=== PATIENT | female | born 1995 | race American Indian/Alaskan Native ===

== ENCOUNTER 2019-03-14 11:27 | Inpatient (IN) | payer MEDICAID ==
[2019-03-14 14:56] LABS: Basophils % (Auto) 0.5 % (0.0-1.8); Eosinophils % (Auto) 0.5 % (0.0-4.3); Hemoglobin 11.9 gm/dl (10.1-14.3); Lymphocytes # (Auto) 1.5 K/mm3 (1.2-5.4); Lymphocytes % (Auto) 14.7 % (13.4-35.0); Mean Corpuscular HGB Conc 34 % (30-34); Mean Corpuscular Volume 93 fl (79-97); Monocytes % (Auto) 9.9 % (0.0-7.3); Platelet Count 297 K/mm3 (140-440); Red Blood Count 3.76 M/mm3 (3.65-5.03); Red Cell Distribution Width 14.4 % (13.2-15.2)
--- NOTE | 2019-03-14 15:12 | Ultrasound Report ---
ULTRASOUND OB LIMITED HISTORY: Premature rupture of membranes, leaking fluid. TECHNIQUE: Transabdominal ultrasound with color Doppler imaging. FINDINGS: Single intrauterine is identified in cephalic position. heart rate measures 133 bpm. Amniotic fluid index measures 1.9 cm. IMPRESSION: Oligohydramnios. Signer Name: Monty Tan Jr, MD Signed: 03/14/2019 3:08 PM Workstation Name: [id number]
[2019-03-14] MEDS: LACTATED RINGERS 1,000 ML IV SCH ×3 (15:17→22:17)
[2019-03-14] MEDS ORDERED: MINERAL OIL PO PRN (15:29)
[2019-03-14] MEDS ORDERED: XYLOCAINE 2% INFILTRATI ONE (15:29)
[2019-03-14] MEDS ORDERED: BRETHINE SUB-Q PRN (15:29)
[2019-03-14] MEDS ORDERED: ZOFRAN IV PRN ×2 (15:35→23:23)
[2019-03-14] MEDS ORDERED: NUBAIN IV PRN (15:35)
[2019-03-14] MEDS ORDERED: PITOCin/NS 20 UNIT/1000ML DRIP 20 UNITS/1,000 ML BAG IV SCH ×2 (16:00→23:45)
[2019-03-14] MEDS ORDERED: PITOCin/NS 30 UNIT/500ML 30 UNITS/500 ML BAG IV SCH (16:00)
[2019-03-14] MEDS ORDERED: AMPICILLIN/NS 2 GM/100 ML 2 GM/100 ML BAG IV ONE (16:35)
[2019-03-14] MEDS ORDERED: LACTATED RINGERS 1,000 ML IV SCH ×2 (16:55→23:45)
--- NOTE | 2019-03-14 18:03 | History and Physical Report ---
History of Present Illness Date of examination: 03/14/19 (pt admitted with ROM GEOVANY 1) Date of admission: 03/14/19 15:26 Chief complaint: called office reporting ctx and mucous plug passing History of present illness: EDC Confirmation: 03/15/2019 Gestational Age: 13 4/7 weeks Past History : 1 Term Births: 0 Premature Births: 0 Living Children: 0 Para: 0 Mult. Births: 0 Prev : 0 Prev. attempt? 0 Aborta: 0 Elect. Ab: 0 Spont. 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 of genital herpes: yes Partner hx. of genital herpes: no Rash, Viral, or Febrile illness since last LMP? yes Varicella/Chicken Pox Status: Unknown TB Risk: no Genetic History Congenital Heart Defect: Mom: no Dad: no Elisabeth Disease: Mom: no Dad: no Thalassemia Mom: no Dad: no Neural Tube Defect Mom: no Dad: no Down's Syndrome Mom: no Dad: no Tommy-Sachs Mom: no Dad: no Sickle Cell Disease/Trait Mom: no Dad: no Hemophilia Mom: no Dad: no Muscular Dystrophy Mom: no Dad: no Cystic Fibrosis Mom: no Dad: no Bubba Chorea Mom: no Dad: no Mental Retardation Mom: no Dad: no Fragile X Mom: no Dad: no Other Genetic/Chromosomal Disorder Mom: no Dad: no Child w/other defect Mom: no Dad: no Enviromental Exposures Enviromental Exposures Reviewed Xray Exposure: no Medication, drug, or alcohol use since LMP: no Chemical/Other Exposure: no Exposure to Cat Liter: no Hx of Parvovirus (Fifth Disease): no Occupational Exposure to Children: none Active Medications (reviewed today): VALACYCLOVIR () PNV () Current Allergies (reviewed today): No known allergies Past History - Obstetrical History Expected Date of Delivery: 03/15/19 Actual Gestation: 39 Week(s) 6 Day(s) : 1 Para: 0 Hx # Term Pregnancies: 0 Number of Pregnancies: 0 Spontaneous Abortions: 0 Induced : 0 Number of Living Children: 0 Medications and Allergies Allergies Allergy/AdvReac Type Severity Reaction Status Date / Time No Known Allergies Allergy Unverified 07/08/18 17:55 Home Medications Medication Instructions Recorded Confirmed Last Taken Type Acetaminophen 500 mg PO Q8H PRN #20 tablet 07/08/18 03/14/19 Unknown Rx 21/Iron Fu/Folic Acid 1 each PO DAILY #30 tablet 07/08/18 03/14/19 1 Day Ago Rx [ Complete Caplet] ~03/13/19 1 Active Meds: Active Medications Ephedrine Sulfate (Ephedrine Sulfate) 10 mg IV Q2M PRN PRN Reason: Hypotension Lactated Ringer's (Lactated Ringers) 1,000 mls @ 125 mls/hr IV DIRECT AURELIA Last Admin: 03/14/19 15:17 Dose: 125 mls/hr Documented by: Oxytocin/Sodium Chloride (Pitocin/Ns 20 Unit/1000ml Drip) 20 units in 1,000 mls @ 125 mls/hr IV DIRECT AURELIA Oxytocin/Sodium Chloride (Pitocin/Ns 30 Unit/500ml) 30 units in 500 mls @ 4 mls/hr IV Q30MIN AURELIA; Protocol Lactated Ringer's (Lactated Ringers) 1,000 mls @ 125 mls/hr IV DIRECT AURELIA Ampicillin Sodium (Ampicillin/Ns 1 Gm/50 Ml) 1 gm in 50 mls @ 100 mls/hr IV Q4H AURELIA; Protocol Mineral Oil (Mineral Oil) 30 ml PO QHS PRN PRN Reason: Constipation Nalbuphine HCl (Nubain) 10 mg IV Q2H PRN PRN Reason: Pain, Moderate (4-6) Ondansetron HCl (Zofran) 4 mg IV Q8H PRN PRN Reason: Nausea And Vomiting Terbutaline Sulfate (Brethine) 0.25 mg SUB-Q ONCE PRN PRN Reason: Hyperstimulation/Hypertonicity - Vital Signs Vital signs: Vital Signs Pulse BP 88 128/71 03/14/19 11:49 03/14/19 11:49 Temp Pulse Resp BP Pulse Ox 98.7 F 78 18 124/76 99 03/14/19 11:50 03/14/19 15:41 03/14/19 11:50 03/14/19 15:41 03/14/19 11:50 - Physical Exam Breasts: Positive: deferred Cardiovascular: Regular rate, Normal S1, Normal S2 Lungs: Positive: Normal air movement Abdomen: Positive: normal appearance, soft, normal bowel sounds. Negative: d istention, tenderness Genitourinary (Female): Positive: normal perenium Vulva: both: normal Vagina: Positive: normal moisture. Negative: discharge Cervix: Negative: lesion, discharge Uterus: Positive: normal size, normal contour Adnexa: both: normal Anus/Rectum: Positive: normal perianal skin, heme negative. Negative: rectal mass, hemorrhoids Extremities: Positive: normal Deep Tendon Reflex Grade: Normal +2 - Obstetrical FHR: category 1 Uterine Contraction Monitor Mode: Internal Cervical Dilatation: 4 (ISE?IUPC placed) Cervical Effacement Percentage: 90 station: 0 Uterine Contraction Pattern: Regular Uterine Tone Measurement Phase: Resting Uterine Contraction Intensity: Moderate Results Result Diagrams: 03/14/19 14:40 Abnormal lab results 03/14/19 Range/Units 14:40 [place] % (Auto) 9.9 H (0.0-7.3) % [place] # 1.0 H (0.0-0.8) K/mm3 Seg Neutrophils % 74.4 H (40.0-70.0) % All other labs normal. GBS positive HBsAg Screen Negative Negative *1 RPR Non Reactive Non Reactive *2 Rubella Antibodies, IgG 4.41 index Immune >0.99 *3 Non-immune <0.90 Equivocal 0.90 - 0.99 Immune >0.99 ABO Grouping O *4 Rh Factor Positive *5 Please note: Prior records for this patient's ABO / Rh type are not available for additional verification. Antibody Screen Negative Negative *6 WBC 9.3 x10E3/uL 3.4-10.8 *7 RBC [L] 3.76 x10E6/uL 3.77-5.28 *8 Hemoglobin 12.2 g/dL 11.1-15.9 *9 Hematocrit 35.9 % 34.0-46.6 *10 MCV 96 fL 79-97 *11 MCH 32.4 pg 26.6-33.0 *12 MCHC 34.0 g/dL 31.5-35.7 *13 RDW 13.3 % 12.3-15.4 *14 Platelets 249 x10E3/uL 150-379 *15 Neutrophils 70 % Not Estab. *16 Lymphs 19 % Not Estab. *17 Monocytes 9 % Not Estab. *18 Eos 2 % Not Estab. *19 Basos 0 % Not Estab. *20 ! Immature Cells <No Reported Value> *21 Neutrophils (Absolute) 6.5 x10E3/uL 1.4-7.0 *22 Lymphs (Absolute) 1.7 x10E3/uL 0.7-3.1 *23 Monocytes(Absolute) 0.8 x10E3/uL 0.1-0.9 *24 Eos (Absolute) 0.2 x10E3/uL 0.0-0.4 *25 Baso (Absolute) 0.0 x10E3/uL 0.0-0.2 *26 ! Immature Granulocytes 0 % Not Estab. *27 ! Immature Grans (Abs) 0.0 x10E3/uL 0.0-0.1 *28 ! NRBC <No Reported Value> *29 Hematology Comments: <No Reported Value> *30 Tests: (2) Thrombotic Risk Acquired Com-I (105282) ! Dilute Prothrombin Time(dPT) 33.6 sec 0.0-55.0 *31 ! dPT Confirm Ratio 1.00 Ratio 0.00-1.40 *32 ! Prothrombin Antibodies, IgG 5 G units 0-20 *33 ! Anticardiolipin Ab,IgG,Qn <9 GPL U/mL 0-14 *34 Negative: <15 Indeterminate: 15 - 20 Low-Med Positive: >20 - 80 High Positive: >80 ! Anticardiolipin Ab,IgM,Qn <9 MPL U/mL 0-12 *35 Negative: <13 Indeterminate: 13 - 20 Low-Med Positive: >20 - 80 High Positive: >80 ! Anticardiolipin Ab,IgA,Qn <9 APL U/mL 0-11 *36 Negative: <12 Indeterminate: 12 - 20 Low-Med Positive: >20 - 80 High Positive: >80 ! Beta-2 Glycoprotein I Ab, IgG <9 GPI IgG units 0-20 *37 The reference interval reflects a 3SD or 99th percentile interval, which is thought to represent a potentially clinically significant result in accordance with the International Consensus Statement on the classification criteria for definitive antiphospholipid syndrome (APS). J Thromb Haem 2006;4:295-306. ! Beta-2 Glycoprotein I Ab, IgA <9 GPI IgA units 0-25 *38 The reference interval reflects a 3SD or 99th percentile interval, which is thought to represent a potentially clinically significant result in accordance with the International Consensus Statement on the classification criteria for definitive antiphospholipid syndrome (APS). J Thromb Haem 2006;4:295-306. ! Beta-2 Glycoprotein I Ab, IgM <9 GPI IgM units 0-32 *39 The reference interval reflects a 3SD or 99th percentile interval, which is thought to represent a potentially clinically significant result in accordance with the International Consensus Statement on the classification criteria for definitive antiphospholipid syndrome (APS). J Thromb Haem 2006;4:295-306. ! Antiphosphatidylserine IgM 8 MPS IgM 0-25 *40 ! Antiphosphatidylserine IgA 1 APS IgA 0-20 *41 ! Antiphosphatidylserine IgG 1 GPS IgG 0-11 *42 PTT-LA 32.6 sec 0.0-51.9 *43 dRVVT 28.7 sec 0.0-47.0 *44 ! Lupus Reflex Interpretation Comment: *45 No lupus anticoagulant was detected. Tests: (3) AFP Tetra ([id number]) ! Results Report *46 ! Test Results: *Screen Negative* *47 ! Tests: (4) Panel 865534 ([id number]) HIV Screen 4th Generation wRfx Non Reactive Non Reactive *70 Tests: (5) HCV Ab w/Rflx to Verification ([id number]) ! HCV Ab 0.1 s/co ratio 0.0-0.9 *71 Tests: (6) Comment: ([id number]) ! Comment: SPRCS *72 Non reactive HCV antibody screen is consistent with no HCV infection, unless recent infection is suspected or other evidence exists to indicate HCV infection. Tests: (7) Urine Culture, Routine ([id number]) Urine Culture, Routine [A] Final report *73 Tests: (8) Result ([id number]) ! Result 1 [A] "Result Below..." *74 RESULT: Klebsiella ozaenae Greater than 100,000 colony forming units per mL Assessment and Plan 24yo @ 39w6d with ROM GEOVANY 1 GBS+ Orders in EMR
[2019-03-14 19:02] LABS: Bacteria,Urine 4+ /HPF (Negative); Bilirubin,Urine NEG (Negative); Blood,Urine NEG (Negative); Color,Urine Yellow (Yellow); Protein,Urine <15 mg/dL mg/dL (Negative); RBC,Urine < 1.0 /HPF (0.0-6.0); Urobilinogen,Urine < 2.0 mg/dL (<2.0)
[2019-03-14] MEDS ORDERED: AMPICILLIN/NS 1 GM/50 ML 1 GM/50 ML BAG IV SCH (19:36)
[2019-03-14] MEDS ORDERED: NARCAN 2 MG/2 ML IV PRN (20:33)
--- NOTE | 2019-03-14 20:35 | Anesthesia Consultation ---
Anesthesia Consult and Med Hx Date of service: 03/14/19 - Airway Anesthetic Teeth Evaluation: Good ROM Head & Neck: Adequate Mental/Hyoid Distance: Adequate Mallampati Class: Class II Intubation Access Assessment: Good - Pulmonary Exam CTA: Yes - Cardiac Exam Cardiac Exam: RRR - Pre-Operative Health Status ASA Pre-Surgery Classification: ASA2, Emergency Proposed Anesthetic Plan: Epidural - Pulmonary Hx Smoking: Yes (<1 pack per day) Hx Asthma: Yes (albuterol inhaler PRN) COPD: No Hx Pneumonia: No - Cardiovascular System Hx Hypertension: No - Central Nervous System Hx Seizures: No Hx Psychiatric Problems: No - Endocrine Hx Renal Disease: No Hx End Stage Renal Disease: No Hx Hypothyroidism: No Hx Hyperthyroidism: No - Hematic Hx Anemia: No Hx Sickle Cell Disease: No - Other Systems Hx Alcohol Use: No
[2019-03-14] MEDS ORDERED: SUBLIMAZE ONE (20:38)
[2019-03-14] MEDS ORDERED: MARCAINE 0.25% INFILTRATI ONE (20:38)
[2019-03-14] MEDS ORDERED: fentaNYL-BUPIV 2 MCG/ML-0.125% 200 MCG/100 ML BAG EPIDURAL SCH (21:00)
--- NOTE | 2019-03-14 21:06 | Progress Note ---
Assessment and Plan Pt comfortable with epidural Pit @ 16mu Noted Meconium stained fluid while placing treviño SVE No chg NICU notified Will re-eval in 1-2 hours. Subjective - Subjective Date of service: 03/14/19 (comfortable with epidural) Principal diagnosis: IUP 39w6d ROM Meconium stained fluid Interval history: EDC Confirmation: 03/15/2019 Gestational Age: 13 4/7 weeks Past History : 1 Term Births: 0 Premature Births: 0 Living Children: 0 Para: 0 Mult. Births: 0 Prev : 0 Prev. attempt? 0 Aborta: 0 Elect. Ab: 0 Spont. 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 of genital herpes: yes Partner hx. of genital herpes: no Rash, Viral, or Febrile illness since last LMP? yes Varicella/Chicken Pox Status: Unknown TB Risk: no Genetic History Congenital Heart Defect: Mom: no Dad: no Elisabeth Disease: Mom: no Dad: no Thalassemia Mom: no Dad: no Neural Tube Defect Mom: no Dad: no Down's Syndrome Mom: no Dad: no Tommy-Sachs Mom: no Dad: no Sickle Cell Disease/Trait Mom: no Dad: no Hemophilia Mom: no Dad: no Muscular Dystrophy Mom: no Dad: no Cystic Fibrosis Mom: no Dad: no [place]andywine Chorea Mom: no Dad: no Mental Retardation Mom: no Dad: no Fragile X Mom: no Dad: no Other Genetic/Chromosomal Disorder Mom: no Dad: no Child w/other defect Mom: no Dad: no Enviromental Exposures Enviromental Exposures Reviewed Xray Exposure: no Medication, drug, or alcohol use since LMP: no Chemical/Other Exposure: no Exposure to Cat Liter: no Hx of Parvovirus (Fifth Disease): no Occupational Exposure to Children: none Active Medications (reviewed today): VALACYCLOVIR () PNV () Current Allergies (reviewed today): No known allergies Patient reports: movement normal Objective - Vital Signs Vital Signs: Vital Signs - 12hr 03/14/19 03/14/19 03/14/19 11:49 11:50 14:06 Temperature 98.7 F Pulse Rate 88 88 89 Respiratory 18 Rate Blood Pressure 128/71 124/72 Blood Pressure 128/71 [Left] O2 Sat by Pulse 99 Oximetry 03/14/19 03/14/19 03/14/19 15:41 17:58 19:15 Temperature Pulse Rate 78 66 89 Respiratory Rate Blood Pressure 124/76 148/84 145/69 Blood Pressure [Left] O2 Sat by Pulse Oximetry 03/14/19 03/14/19 03/14/19 19:56 20:01 20:06 Temperature Pulse Rate 87 75 78 Respiratory Rate Blood Pressure Blood Pressure [Left] O2 Sat by Pulse 99 100 100 Oximetry 03/14/19 03/14/19 03/14/19 20:10 20:11 20:15 Temperature 97.9 F Pulse Rate 97 H 82 89 Respiratory 16 Rate Blood Pressure Blood Pressure 145/69 [Left] O2 Sat by Pulse 80 L 97 Oximetry 03/14/19 03/14/19 03/14/19 20:16 20:21 20:42 Temperature Pulse Rate 83 71 92 H Respiratory Rate Blood Pressure Blood Pressure [Left] O2 Sat by Pulse 98 98 99 Oximetry 03/14/19 03/14/19 03/14/19 20:44 20:46 20:47 Temperature Pulse Rate 79 106 H 102 H Respiratory Rate Blood Pressure 138/76 132/80 Blood Pressure [Left] O2 Sat by Pulse 100 Oximetry 03/14/19 03/14/19 03/14/19 20:48 20:50 20:52 Temperature Pulse Rate 111 H 110 H 119 H Respiratory Rate Blood Pressure 127/62 117/72 116/66 Blood Pressure [Left] O2 Sat by Pulse 99 Oximetry 03/14/19 03/14/19 03/14/19 20:54 20:56 20:57 Temperature Pulse Rate 109 H 114 H 113 H Respiratory Rate Blood Pressure 120/62 123/61 Blood Pressure [Left] O2 Sat by Pulse 100 Oximetry 03/14/19 03/14/19 20:58 21:00 Temperature Pulse Rate 125 H 113 H Respiratory Rate Blood Pressure 116/58 113/44 Blood Pressure [Left] O2 Sat by Pulse Oximetry - Exam Breasts: deferred Cardiovascular: Regular rate Lungs: Normal air movement Abdomen: Present: normal appearance, soft. Absent: distention, tenderness Uterus: Present: normal FHR: auscultation normal, category 1 Uterine Contraction Monitor Mode: Internal Cervical Dilatation: 4 Cervical Effacement Percentage: 90 station: -1 Uterine Contraction Pattern: Regular Uterine Tone Measurement Phase: Resting Uterine Contraction Intensity: Moderate Extremities: normal Deep Tendon Reflex Grade: Normal +2 - Labs Labs: Abnormal Labs 03/14/19 14:40 [place] % (Auto) 9.9 H [place] # 1.0 H Seg Neutrophils % 74.4 H Laboratory Results - last 24 hr 03/14/19 03/14/19 03/14/19 14:40 14:40 17:30 WBC 10.0 RBC 3.76 Hgb 11.9 Hct 35.0 MCV 93 MCH 32 MCHC 34 RDW 14.4 Plt Count 297 Lymph % (Auto) 14.7 [place] % (Auto) 9.9 H Eos % (Auto) 0.5 Baso % (Auto) 0.5 Lymph # 1.5 [place] # 1.0 H Eos # 0.0 Baso # 0.0 Seg Neutrophils % 74.4 H Seg Neutrophils # 7.5 Urine Color Yellow Urine Turbidity Clear Urine pH 7.0 Ur Specific [place] 1.006 Urine Protein <15 mg/dl Urine Glucose (UA) Neg Urine Ketones Neg Urine Blood Neg Urine Nitrite Neg Urine Bilirubin Neg Urine Urobilinogen < 2.0 Ur Leukocyte Esterase Tr Urine WBC (Auto) 2.0 Urine RBC (Auto) < 1.0 U Epithel Cells (Auto) < 1.0 Urine Bacteria (Auto) 4+ Blood Type O POSITIVE Antibody Screen Negative
[2019-03-14] MEDS ORDERED: BICITRA PO ONE (23:18)
[2019-03-14] MEDS ORDERED: PEPCID IV ONE (23:18)
[2019-03-14] MEDS ORDERED: REGLAN IV ONE (23:18)
--- NOTE | 2019-03-14 23:18 | Progress Note ---
<LORI GILBERT - Last Filed: 03/14/19 23:11> Assessment and Plan Arrest of dilatation and descent Consulted with C/S called Orders in EMR Consents signed. Risks discussed: damage to surrounding organs, need for c/s for future pregnancies, need for blood transfusions due to bleeding. All questions addressed. Subjective - Subjective Date of service: 03/14/19 (no cervical chg X 5 hours) Principal diagnosis: IUP 39w6d ROM Meconium stained fluid Interval history: EDC Confirmation: 03/15/2019 Gestational Age: 13 4/7 weeks Past History : 1 Term Births: 0 Premature Births: 0 Living Children: 0 Para: 0 Mult. Births: 0 Prev : 0 Prev. attempt? 0 Aborta: 0 Elect. Ab: 0 Spont. 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 of genital herpes: yes Partner hx. of genital herpes: no Rash, Viral, or Febrile illness since last LMP? yes Varicella/Chicken Pox Status: Unknown TB Risk: no Genetic History Congenital Heart Defect: Mom: no Dad: no Elisabeth Disease: Mom: no Dad: no Thalassemia Mom: no Dad: no Neural Tube Defect Mom: no Dad: no Down's Syndrome Mom: no Dad: no Tommy-Sachs Mom: no Dad: no Sickle Cell Disease/Trait Mom: no Dad: no Hemophilia Mom: no Dad: no Muscular Dystrophy Mom: no Dad: no Cystic Fibrosis Mom: no Dad: no [place] Chorea Mom: no Dad: no Mental Retardation Mom: no Dad: no Fragile X Mom: no Dad: no Other Genetic/Chromosomal Disorder Mom: no Dad: no Child w/other defect Mom: no Dad: no Enviromental Exposures Enviromental Exposures Reviewed Xray Exposure: no Medication, drug, or alcohol use since LMP: no Chemical/Other Exposure: no Exposure to Cat Liter: no Hx of Parvovirus (Fifth Disease): no Occupational Exposure to Children: none Active Medications (reviewed today): VALACYCLOVIR () PNV () Current Allergies (reviewed today): No known allergies Patient reports: movement normal Objective - Vital Signs Vital Signs: Vital Signs - 12hr 03/14/19 03/14/19 03/14/19 11:49 11:50 14:06 Temperature 98.7 F Pulse Rate 88 88 89 Respiratory 18 Rate Blood Pressure 128/71 124/72 Blood Pressure 128/71 [Left] O2 Sat by Pulse 99 Oximetry 03/14/19 03/14/19 03/14/19 15:41 17:58 19:15 Temperature Pulse Rate 78 66 89 Respiratory Rate Blood Pressure 124/76 148/84 145/69 Blood Pressure [Left] O2 Sat by Pulse Oximetry 03/14/19 03/14/19 03/14/19 19:56 20:01 20:06 Temperature Pulse Rate 87 75 78 Respiratory Rate Blood Pressure Blood Pressure [Left] O2 Sat by Pulse 99 100 100 Oximetry 03/14/19 03/14/19 03/14/19 20:10 20:11 20:15 Temperature 97.9 F Pulse Rate 97 H 82 89 Respiratory 16 Rate Blood Pressure Blood Pressure 145/69 [Left] O2 Sat by Pulse 80 L 97 Oximetry 03/14/19 03/14/19 03/14/19 20:16 20:21 20:42 Temperature Pulse Rate 83 71 92 H Respiratory Rate Blood Pressure Blood Pressure [Left] O2 Sat by Pulse 98 98 99 Oximetry 03/14/19 03/14/19 03/14/19 20:44 20:46 20:47 Temperature Pulse Rate 79 106 H 102 H Respiratory Rate Blood Pressure 138/76 132/80 Blood Pressure [Left] O2 Sat by Pulse 100 Oximetry 03/14/19 03/14/19 03/14/19 20:48 20:50 20:52 Temperature Pulse Rate 111 H 110 H 119 H Respiratory Rate Blood Pressure 127/62 117/72 116/66 Blood Pressure [Left] O2 Sat by Pulse 99 Oximetry 03/14/19 03/14/19 03/14/19 20:54 20:56 20:57 Temperature Pulse Rate 109 H 114 H 113 H Respiratory Rate Blood Pressure 120/62 123/61 Blood Pressure [Left] O2 Sat by Pulse 100 Oximetry 03/14/19 03/14/19 03/14/19 20:58 21:00 21:02 Temperature Pulse Rate 125 H 113 H 97 H Respiratory Rate Blood Pressure 116/58 113/44 95/55 Blood Pressure [Left] O2 Sat by Pulse 99 Oximetry 03/14/19 03/14/19 03/14/19 21:04 21:06 21:07 Temperature Pulse Rate 98 H 102 H 113 H Respiratory Rate Blood Pressure 97/53 98/55 Blood Pressure [Left] O2 Sat by Pulse 97 Oximetry 03/14/19 03/14/19 03/14/19 21:08 21:10 21:12 Temperature Pulse Rate 84 121 H 113 H Respiratory Rate Blood Pressure 117/56 108/52 105/59 Blood Pressure [Left] O2 Sat by Pulse 99 Oximetry 03/14/19 03/14/19 03/14/19 21:14 21:16 21:17 Temperature Pulse Rate 106 H 107 H 88 Respiratory Rate Blood Pressure 105/56 104/56 Blood Pressure [Left] O2 Sat by Pulse 99 Oximetry 03/14/19 03/14/19 03/14/19 21:18 21:19 21:20 Temperature Pulse Rate 85 87 74 Respiratory Rate Blood Pressure 114/70 109/56 Blood Pressure [Left] O2 Sat by Pulse 94 Oximetry 03/14/19 03/14/19 03/14/19 21:22 21:24 21:26 Temperature Pulse Rate 101 H 104 H 79 Respiratory Rate Blood Pressure 101/56 111/57 112/59 Blood Pressure [Left] O2 Sat by Pulse 99 Oximetry 03/14/19 03/14/19 03/14/19 21:27 21:28 21:30 Temperature Pulse Rate 94 H 75 93 H Respiratory Rate Blood Pressure 111/57 97/54 Blood Pressure [Left] O2 Sat by Pulse 95 Oximetry 03/14/19 03/14/19 03/14/19 21:32 21:37 21:42 Temperature Pulse Rate 79 81 89 Respiratory Rate Blood Pressure 126/60 105/56 Blood Pressure [Left] O2 Sat by Pulse 96 97 97 Oximetry 03/14/19 03/14/19 03/14/19 21:47 21:51 21:52 Temperature Pulse Rate 99 H 96 H 99 H Respiratory Rate Blood Pressure 136/77 128/72 Blood Pressure [Left] O2 Sat by Pulse 100 100 Oximetry 03/14/19 03/14/19 03/14/19 21:56 21:57 22:02 Temperature Pulse Rate 106 H 106 H 122 H Respiratory Rate Blood Pressure 120/66 125/74 Blood Pressure [Left] O2 Sat by Pulse 100 100 Oximetry 03/14/19 03/14/19 03/14/19 22:07 22:12 22:17 Temperature Pulse Rate 87 89 90 Respiratory Rate Blood Pressure Blood Pressure [Left] O2 Sat by Pulse 100 99 99 Oximetry 03/14/19 03/14/19 03/14/19 22:18 22:22 22:27 Temperature Pulse Rate 88 74 83 Respiratory Rate Blood Pressure 113/56 Blood Pressure [Left] O2 Sat by Pulse 98 98 Oximetry 03/14/19 03/14/19 03/14/19 22:31 22:32 22:37 Temperature Pulse Rate 94 H 97 H 95 H Respiratory Rate Blood Pressure 109/55 Blood Pressure [Left] O2 Sat by Pulse 89 97 98 Oximetry 03/14/19 03/14/19 03/14/19 22:42 22:47 22:52 Temperature Pulse Rate 110 H 91 H 92 H Respiratory Rate Blood Pressure 101/54 Blood Pressure [Left] O2 Sat by Pulse 95 98 95 Oximetry 03/14/19 03/14/19 03/14/19 22:57 23:02 23:06 Temperature Pulse Rate 85 98 H 96 H Respiratory Rate Blood Pressure 133/62 Blood Pressure [Left] O2 Sat by Pulse 97 98 Oximetry 03/14/19 23:07 Temperature Pulse Rate 100 H Respiratory Rate Blood Pressure Blood Pressure [Left] O2 Sat by Pulse 99 Oximetry - Exam Breasts: deferred Cardiovascular: Regular rate Lungs: Normal air movement Abdomen: Present: normal appearance, soft. Absent: distention, tenderness Uterus: Present: normal FHR: auscultation normal, category 1 Uterine Contraction Monitor Mode: Internal Cervical Dilatation: 4 (no chg) Cervical Effacement Percentage: 90 station: -1 Uterine Contraction Pattern: Regular Uterine Tone Measurement Phase: Resting Uterine Contraction Intensity: Moderate Extremities: normal Deep Tendon Reflex Grade: Normal +2 - Labs Labs: Abnormal Labs 03/14/19 14:40 [place] % (Auto) 9.9 H [place] # 1.0 H Seg Neutrophils % 74.4 H Laboratory Results - last 24 hr 03/14/19 03/14/19 03/14/19 14:40 14:40 17:30 WBC 10.0 RBC 3.76 Hgb 11.9 Hct 35.0 MCV 93 MCH 32 MCHC 34 RDW 14.4 Plt Count 297 Lymph % (Auto) 14.7 [place] % (Auto) 9.9 H Eos % (Auto) 0.5 Baso % (Auto) 0.5 Lymph # 1.5 [place] # 1.0 H Eos # 0.0 Baso # 0.0 Seg Neutrophils % 74.4 H Seg Neutrophils # 7.5 Urine Color Yellow Urine Turbidity Clear Urine pH 7.0 Ur Specific [place] 1.006 Urine Protein <15 mg/dl Urine Glucose (UA) Neg Urine Ketones Neg Urine Blood Neg Urine Nitrite Neg Urine Bilirubin Neg Urine Urobilinogen < 2.0 Ur Leukocyte Esterase Tr Urine WBC (Auto) 2.0 Urine RBC (Auto) < 1.0 U Epithel Cells (Auto) < 1.0 Urine Bacteria (Auto) 4+ Blood Type O POSITIVE Antibody Screen Negative <MELE GUARDADO - Last Filed: 03/15/19 00:33> Assessment and Plan No cervical change now for greater than 6hrs. Options reviewed: Continue JOANN vs C/S delivery. Risks for c/s explained, including but not limited to, bleeding, infection, injury or bowel/bladder or major vascular injury. She was also informed she may require c/s's for all subsequent pregnancies, she voiced understanding and desires to proceed with c/s delivery. Objective - Vital Signs Vital Signs: Vital Signs - 12hr 03/14/19 03/14/19 03/14/19 14:06 15:41 17:58 Temperature Pulse Rate 89 78 66 Respiratory Rate Blood Pressure 124/72 124/76 148/84 Blood Pressure [Left] O2 Sat by Pulse Oximetry 03/14/19 03/14/19 03/14/19 19:15 19:56 20:01 Temperature Pulse Rate 89 87 75 Respiratory Rate Blood Pressure 145/69 Blood Pressure [Left] O2 Sat by Pulse 99 100 Oximetry 03/14/19 03/14/19 03/14/19 20:06 20:10 20:11 Temperature Pulse Rate 78 97 H 82 Respiratory Rate Blood Pressure Blood Pressure [Left] O2 Sat by Pulse 100 80 L 97 Oximetry 03/14/19 03/14/19 03/14/19 20:15 20:16 20:21 Temperature 97.9 F Pulse Rate 89 83 71 Respiratory 16 Rate Blood Pressure Blood Pressure 145/69 [Left] O2 Sat by Pulse 98 98 Oximetry 03/14/19 03/14/19 03/14/19 20:42 20:44 20:46 Temperature Pulse Rate 92 H 79 106 H Respiratory Rate Blood Pressure 138/76 132/80 Blood Pressure [Left] O2 Sat by Pulse 99 Oximetry 03/14/19 03/14/19 03/14/19 20:47 20:48 20:50 Temperature Pulse Rate 102 H 111 H 110 H Respiratory Rate Blood Pressure 127/62 117/72 Blood Pressure [Left] O2 Sat by Pulse 100 Oximetry 03/14/19 03/14/19 03/14/19 20:52 20:54 20:56 Temperature Pulse Rate 119 H 109 H 114 H Respiratory Rate Blood Pressure 116/66 120/62 123/61 Blood Pressure [Left] O2 Sat by Pulse 99 Oximetry 03/14/19 03/14/19 03/14/19 20:57 20:58 21:00 Temperature Pulse Rate 113 H 125 H 113 H Respiratory Rate Blood Pressure 116/58 113/44 Blood Pressure [Left] O2 Sat by Pulse 100 Oximetry 03/14/19 03/14/19 03/14/19 21:02 21:04 21:06 Temperature Pulse Rate 97 H 98 H 102 H Respiratory Rate Blood Pressure 95/55 97/53 98/55 Blood Pressure [Left] O2 Sat by Pulse 99 Oximetry 03/14/19 03/14/19 03/14/19 21:07 21:08 21:10 Temperature Pulse Rate 113 H 84 121 H Respiratory Rate Blood Pressure 117/56 108/52 Blood Pressure [Left] O2 Sat by Pulse 97 Oximetry 03/14/19 03/14/19 03/14/19 21:12 21:14 21:16 Temperature Pulse Rate 113 H 106 H 107 H Respiratory Rate Blood Pressure 105/59 105/56 104/56 Blood Pressure [Left] O2 Sat by Pulse 99 Oximetry 03/14/19 03/14/19 03/14/19 21:17 21:18 21:19 Temperature Pulse Rate 88 85 87 Respiratory Rate Blood Pressure 114/70 Blood Pressure [Left] O2 Sat by Pulse 99 94 Oximetry 03/14/19 03/14/19 03/14/19 21:20 21:22 21:24 Temperature Pulse Rate 74 101 H 104 H Respiratory Rate Blood Pressure 109/56 101/56 111/57 Blood Pressure [Left] O2 Sat by Pulse 99 Oximetry 03/14/19 03/14/19 03/14/19 21:26 21:27 21:28 Temperature Pulse Rate 79 94 H 75 Respiratory Rate Blood Pressure 112/59 111/57 Blood Pressure [Left] O2 Sat by Pulse 95 Oximetry 03/14/19 03/14/19 03/14/19 21:30 21:32 21:37 Temperature Pulse Rate 93 H 79 81 Respiratory Rate Blood Pressure 97/54 126/60 Blood Pressure [Left] O2 Sat by Pulse 96 97 Oximetry 03/14/19 03/14/19 03/14/19 21:42 21:47 21:51 Temperature Pulse Rate 89 99 H 96 H Respiratory Rate Blood Pressure 105/56 136/77 128/72 Blood Pressure [Left] O2 Sat by Pulse 97 100 Oximetry 03/14/19 03/14/19 03/14/19 21:52 21:56 21:57 Temperature Pulse Rate 99 H 106 H 106 H Respiratory Rate Blood Pressure 120/66 Blood Pressure [Left] O2 Sat by Pulse 100 100 Oximetry 03/14/19 03/14/19 03/14/19 22:02 22:07 22:12 Temperature Pulse Rate 122 H 87 89 Respiratory Rate Blood Pressure 125/74 Blood Pressure [Left] O2 Sat by Pulse 100 100 99 Oximetry 03/14/19 03/14/19 03/14/19 22:17 22:18 22:22 Temperature Pulse Rate 90 88 74 Respiratory Rate Blood Pressure 113/56 Blood Pressure [Left] O2 Sat by Pulse 99 98 Oximetry 03/14/19 03/14/19 03/14/19 22:27 22:31 22:32 Temperature Pulse Rate 83 94 H 97 H Respiratory Rate Blood Pressure 109/55 Blood Pressure [Left] O2 Sat by Pulse 98 89 97 Oximetry 03/14/19 03/14/19 03/14/19 22:37 22:42 22:47 Temperature Pulse Rate 95 H 110 H 91 H Respiratory Rate Blood Pressure 101/54 Blood Pressure [Left] O2 Sat by Pulse 98 95 98 Oximetry 03/14/19 03/14/19 03/14/19 22:52 22:57 23:02 Temperature Pulse Rate 92 H 85 98 H Respiratory Rate Blood Pressure Blood Pressure [Left] O2 Sat by Pulse 95 97 98 Oximetry 03/14/19 03/14/19 03/14/19 23:06 23:07 23:12 Temperature Pulse Rate 96 H 100 H 101 H Respiratory Rate Blood Pressure 133/62 Blood Pressure [Left] O2 Sat by Pulse 99 97 Oximetry 03/14/19 03/14/19 03/14/19 23:17 23:22 23:26 Temperature 99.2 F Pulse Rate 106 H 96 H 102 H Respiratory 18 Rate Blood Pressure 133/62 Blood Pressure 133/62 [Left] O2 Sat by Pulse 100 100 99 Oximetry 03/14/19 03/14/19 03/14/19 23:27 23:32 23:33 Temperature Pulse Rate 90 95 H 97 H Respiratory Rate Blood Pressure 122/70 Blood Pressure [Left] O2 Sat by Pulse 100 100 Oximetry 03/14/19 03/14/19 03/14/19 23:37 23:42 23:47 Temperature Pulse Rate 115 H 106 H 108 H Respiratory Rate Blood Pressure 121/58 Blood Pressure [Left] O2 Sat by Pulse 98 99 96 Oximetry 03/14/19 03/14/19 03/14/19 23:52 23:53 23:57 Temperature Pulse Rate 110 H 109 H 107 H Respiratory Rate Blood Pressure Blood Pressure [Left] O2 Sat by Pulse 98 81 L 97 Oximetry 03/15/19 03/15/19 03/15/19 00:02 00:03 00:07 Temperature Pulse Rate 83 93 H 95 H Respiratory Rate Blood Pressure 131/66 Blood Pressure [Left] O2 Sat by Pulse 96 97 Oximetry 03/15/19 03/15/19 03/15/19 00:12 00:17 00:18 Temperature Pulse Rate 104 H 97 H 88 Respiratory Rate Blood Pressure 122/66 Blood Pressure [Left] O2 Sat by Pulse 97 98 Oximetry 03/15/19 00:22 Temperature Pulse Rate 91 H Respiratory Rate Blood Pressure Blood Pressure [Left] O2 Sat by Pulse 97 Oximetry - Labs Labs: Abnormal Labs 03/14/19 14:40 [place] % (Auto) 9.9 H [place] # 1.0 H Seg Neutrophils % 74.4 H Laboratory Results - last 24 hr 03/14/19 03/14/19 03/14/19 14:40 14:40 17:30 WBC 10.0 RBC 3.76 Hgb 11.9 Hct 35.0 MCV 93 MCH 32 MCHC 34 RDW 14.4 Plt Count 297 Lymph % (Auto) 14.7 [place] % (Auto) 9.9 H Eos % (Auto) 0.5 Baso % (Auto) 0.5 Lymph # 1.5 [place] # 1.0 H Eos # 0.0 Baso # 0.0 Seg Neutrophils % 74.4 H Seg Neutrophils # 7.5 Urine Color Yellow Urine Turbidity Clear Urine pH 7.0 Ur Specific [place] 1.006 Urine Protein <15 mg/dl Urine Glucose (UA) Neg Urine Ketones Neg Urine Blood Neg Urine Nitrite Neg Urine Bilirubin Neg Urine Urobilinogen < 2.0 Ur Leukocyte Esterase Tr Urine WBC (Auto) 2.0 Urine RBC (Auto) < 1.0 U Epithel Cells (Auto) < 1.0 Urine Bacteria (Auto) 4+ Blood Type O POSITIVE Antibody Screen Negative
[2019-03-14] MEDS ORDERED: PHENERGAN PR PRN (23:23)
[2019-03-14] MEDS ORDERED: NARCAN 0.4 MG/1 ML IV PRN (23:23)
[2019-03-14] MEDS ORDERED: DILAUDID IV PRN ×2 (23:23)
[2019-03-14] MEDS ORDERED: PHENERGAN PO PRN (23:23)
--- NOTE | 2019-03-14 23:23 | Anesthesia Day of Surgery ---
Anesthesia Day of Surgery - Day of Surgery Patient Examined: Yes Patient H&P Reviewed: Yes Patient is NPO: Yes Beta Blockers: No
[2019-03-14] MEDS ORDERED: ANCEF/STERILE WATER 2 GM/20 ML 2 GM/20 ML SYRINGE IV NR (23:45)
[2019-03-14] MEDS ORDERED: SODIUM CHLORIDE FLUSH SYRINGE 10 ML IV NR (23:45)
[2019-03-15] MEDS ORDERED: XYLOCAINE 2%/ EPI 1:200,000 INFILTRATI ONE (00:50)
[2019-03-15] MEDS ORDERED: ZOFRAN ONE (00:50)
[2019-03-15] MEDS ORDERED: NACL 0.9% IR ONE (00:55)
[2019-03-15] MEDS ORDERED: WATER FOR IRRIG STERILE IR ONE (00:55)
[2019-03-15] MEDS ORDERED: TORADOL ONE (01:16)
[2019-03-15] MEDS ORDERED: BENADRYL ONE (01:16)
[2019-03-15] MEDS ORDERED: LANSINOH TP PRN (01:34)
[2019-03-15] MEDS ORDERED: NARCAN 0.4 MG/1 ML IV PRN (01:34)
[2019-03-15] MEDS ORDERED: TYLENOL PO PRN (01:34)
[2019-03-15] MEDS ORDERED: TUCKS PAD TP PRN (01:34)
--- NOTE | 2019-03-15 01:43 | Post Operative Note ---
Pre-op diagnosis: s/p c/s failure to dilate Post-op diagnosis: same Procedure: LTCS Anesthesia: epidural Surgeon: MELE GUARDADO Nutrition Manager: LORI GILBERT Estimated blood loss: other (500) Condition: stable Disposition: PACU
[2019-03-15] MEDS ORDERED: TORADOL IV PRN (01:46)
[2019-03-15] MEDS ORDERED: PITOCin/NS 20 UNIT/1000ML DRIP 20 UNITS/1,000 ML BAG IV SCH (02:00)
[2019-03-15] MEDS ORDERED: SODIUM CHLORIDE FLUSH SYRINGE 10 ML IV NR (02:00)
--- NOTE | 2019-03-15 08:06 | Ultrasound Report ---
ULTRASOUND BIOPHYSICAL PROFILE INDICATION: leaking fluid. COMPARISON: None available. FINDINGS: heart rate is 151 beats per minute. breathing movement = 2 Gross body movement = 2 tone = 2 Qualitative amniotic fluid volume = 2 IMPRESSION: biophysical profile = 02/07 Signer Name: Monty Tan Jr, MD Signed: 03/15/2019 8:01 AM Workstation Name: [id number]
[2019-03-15] MEDS ORDERED: D5LR 1,000 ML IV SCH (11:00)
[2019-03-15 15:15] LABS: Hematocrit 31.3 % (30.3-42.9); Hemoglobin 10.7 gm/dl (10.1-14.3)
[2019-03-15] MEDS: IBUPROFEN PO PRN (17:40)
[2019-03-15] MEDS: PERCOCET 5/325 PO PRN (22:23)
--- NOTE | 2019-03-16 01:05 | Operative Report ---
PREOPERATIVE DIAGNOSES: 1. Intrauterine at 40 weeks. 2. Failure to dilate. POSTOPERATIVE DIAGNOSES: 1. Intrauterine at 40 weeks. 2. Failure to dilate. PROCEDURE PERFORMED: Primary low transverse section. SURGEON: Salina Morris MD DE ICER KIT ASSEMBLER: Lisset Stein CNM ANESTHESIA: Epidural. COMPLICATIONS: None. ESTIMATED BLOOD LOSS: 500 mL. ANESTHESIOLOGIST: Dr. Yaquelin Castillo. DESCRIPTION OF PROCEDURE: After risks, benefits, complications, and alternatives for this procedure were discussed with the patient and consents were reviewed and signed, she was taken to the OR where epidural anesthesia was bolused. She was placed in the supine position with a left lateral tilt and prepped and draped in the usual sterile fashion. Time-out was performed. Once appropriate level of anesthesia was noted, a Pfannenstiel incision was made and extended to the fascia, which was incised and extended in the lateral direction. The overlying fascia was sharply dissected away from the underlying rectus muscles in a superior-inferior direction. Midline was then entered bluntly. The vesicouterine fold was incised with blunt dissection. Bladder flap was created. A transverse incision was made in the lower uterine segment and extended in a superolateral direction with finger fractionation. was delivered from the cephalic position LOT with nuchal cord noted at the shoulder. had spontaneous cry and excellent tone. Cord was doubly clamped and cut, and infant was given to the Resuscitation team present. Placenta was manually extracted. Uterus was exteriorized and cleaned of any further products of conception and placental tissue. The incision was reapproximated using 0 Vicryl in a running and locking stitch followed by a further suture of 0 Vicryl in an imbricating fashion. Once hemostasis was noted, the uterus was allowed back into the pelvic cavity and the pelvis was irrigated with warm normal saline. Surgicel was placed and Interceed was placed on the uterus. Once hemostasis was noted, the rectus muscles were reapproximated using 0 Vicryl in a simple suture times 4. Once hemostasis was noted, the fascia was reapproximated using 0 Vicryl in a simple running stitch from distal to midline. Once hemostasis was noted, the incision was again irrigated with warm normal saline and the skin was reapproximated using 4-0 Vicryl on a Omega needle in a subcuticular manner. The patient tolerated the procedure well and was taken to recovery room in a stable condition. FINDINGS: Liveborn male , weight 6 pounds 14 ounces, Apgars 8 and 9. Grossly normal uterus, tubes and ovaries. [facility]# [id number] LDR/NTS
[2019-03-16] MEDS ORDERED: BOOSTRIX IM ONE (01:36)
[2019-03-16] MEDS ORDERED: M-M-R II VACCINE SUB-Q ONE (01:36)
[2019-03-16] MEDS: PERCOCET 5/325 PO PRN ×3 (05:16→18:32)
--- NOTE | 2019-03-16 10:21 | Progress Note ---
Assessment and Plan resting in bed, pain well controlled. VSSAF (2 elevated b/p's last night but normal since, will continue to monitor), H&H 10.7/31.3, lochia small, fundus firm. Dressing D&I - rn to remove after shower today. - Patient Problems (1) delivery delivered Current Visit: Yes Status: Acute Plan to address problem: continue postop pathway advance diet and activity as tolerated encourage Subjective - Subjective Date of service: 03/16/19 Principal diagnosis: postop day #1 s/p primary c/s Patient reports: appetite normal, voiding normally, pain well controlled, ambulating normally, no dizzy ambulation, no flatus, no nauseated [place]: doing well, bottle feeding (breast and bottle feeding) Objective - Vital Signs Latest vital signs: Vital Signs Temp Pulse Resp BP BP Pulse Ox 03/16/19 08:03 98.4 F 81 18 114/72 03/16/19 05:18 98.4 F 68 24 121/78 100 03/16/19 05:16 20 03/16/19 01:40 98.4 F 64 22 140/66 96 03/15/19 23:15 98.7 F 66 22 160/81 92 03/15/19 22:23 20 03/15/19 21:12 22 131/81 03/15/19 16:31 98.7 F 77 18 120/72 03/15/19 12:23 98.5 F 84 18 116/69 Intake and Output 03/15/19 03/16/19 03/16/19 23:59 07:59 15:59 Intake Total 480 480 Balance 480 480 Intake: Oral 480 480 Other: Total, Intake Amount 480 480 - Exam Breasts: Present: normal, Cardiovascular: Present: Regular rate Lungs: Present: Clear to auscultation, Normal air movement Abdomen: Present: normal appearance, soft Vulva: both: normal Uterus: Present: normal, firm, fundal height at umbilicus Extremities: Present: normal Incision: Present: normal, dry, dressed
[2019-03-16] MEDS: IBUPROFEN PO PRN ×2 (12:58→18:32)
[2019-03-17] MEDS: IBUPROFEN PO PRN (00:01)
--- NOTE | 2019-03-17 11:39 | Discharge Summary ---
Providers - Providers Date of Admission: 03/14/19 15:26 Date of discharge: 03/17/19 (pt requesting d/c home today) Attending physician: MELE GUARDADO Primary care physician: MELE GUARDADO Hospitalization Reason for admission: SROM Condition: Good Pertinent studies: postop H&H 10.7/31.3 Procedures: primary c/s Hospital course: uncomplicated c/s and postop course Disposition: DC-01 TO HOME OR SELFCARE - Discharge Diagnoses (1) delivery delivered Status: Acute Core Measure Documentation - Palliative Care Palliative Care/ Comfort Measures: Not Applicable - Core Measures Any of the following diagnoses?: none Exam - Physical Exam Narrative exam: Pumping good quantity of breastmilk, incision D&I, lochia scant, fundus firm. - Constitutional Vitals: Temp Pulse Resp BP Pulse Ox 98.4 F 82 18 137/80 100 03/17/19 07:25 03/17/19 07:25 03/17/19 07:25 03/17/19 07:03/16/19 05:18 General appearance: Present: no acute distress, well-nourished - EENT Eyes: Present: PERRL ENT: hearing intact, clear oral mucosa - Neck Neck: Present: supple, normal ROM - Respiratory Respiratory effort: normal Respiratory: bilateral: CTA - Cardiovascular Heart Sounds: Present: S1 & S2. Absent: rub, click - Extremities Extremities: pulses symmetrical, No edema Peripheral Pulses: within normal limits - Abdominal General gastrointestinal: Present: soft, non-tender, non-distended, normal bowel sounds Female genitourinary: Present: normal - Integumentary Integumentary: Present: clear, warm, dry - Musculoskeletal Musculoskeletal: gait normal, strength equal bilaterally - Psychiatric Psychiatric: appropriate mood/affect, intact judgment & insight - Neurologic Neurologic: CNII-XII intact, moves all extremities Plan Activity: advance as tolerated Diet: regular Wound: open to air, keep clean and dry Special Instructions: no heavy lifting Follow up with: MELE GUARDADO MD [Primary Care Provider] - 7 Days (Congratulations! Please call [phone] to schedule your incision check and your son's circumcision in 1 week. Bring EMLA cream to your son's appointment and await further teaching. Call for any questions or concerns. ) Prescriptions: Lidocain2.5%/Prilocai2.5% [Emla] 5 gm TP ONCE #1 tube Ibuprofen [Motrin 800 MG tab] 800 mg PO TID PRN #30 tablet PRN Reason: Pain oxyCODONE /ACETAMINOPHEN [Percocet 5/325 mg] 1 - 2 tab PO Q4HR PRN #20 tablet PRN Reason: Pain
[2019-03-17 14:48] VITALS: BP 130/84
== END 2019-03-17 14:40 | disposition home or self-care (01) | DRG 766 ==
LOC: TRG 11:27 → LD 15:23 → TRG 15:26 → LD 15:26 → APU 03-15 02:10 → OB 03-15 03:26
PROVIDERS: ADMIT Obstetrics & Gynecology; ATTEND Obstetrics & Gynecology
PROC: 10D00Z1 Extraction of Products of Conception, Low, Open Approach (ICD-10-PCS; principal; 2019-03-15)
PROC: 3E0234Z Introduction of Serum, Toxoid and Vaccine into Muscle, Percutaneous Approach (ICD-10-PCS; 2019-03-16)
DX: O99.824 Streptococcus B carrier state complicating childbirth (principal); O62.0 Primary inadequate contractions; O77.0 Labor and delivery complicated by meconium in amniotic fluid; O99.334 Smoking (tobacco) complicating childbirth; O99.52 Diseases of the respiratory system complicating childbirth; J45.909 Unspecified asthma, uncomplicated; F17.210 Nicotine dependence, cigarettes, uncomplicated; Z79.899 Other long term (current) drug therapy; Z3A.39 39 weeks gestation of pregnancy; Z37.0 Single live birth; Z23 Encounter for immunization
CPT/HCPCS: 36415; 76815; 76819; 81001; 85014; 85018; 85025; 86592; 86850; 86900; 86901; G0378; C1765; J0290; J0690; J1170; J1200; J1885; J2300; J2405; J2590; J2765; J3010; J7120; J7121